=== PATIENT | female | born 2000 | race Caucasian/White ===

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

== ENCOUNTER → 2021-02-28 | Outpatient (CLI) | payer OTHER ==
--- NOTE | 2021-02-28 15:17 | MR ---
EXAMINATION TYPE: MR knee RT wo con DATE OF EXAM: 02/28/2021 COMPARISON: 02/20/2021 HISTORY: Rt knee pain, hx of acl/meniscus surgery TECHNIQUE: Multiplanar, multisequence imaging of the right knee is performed without IV contrast. FINDINGS: MEDIAL MENISCUS: Anterior and posterior horns are intact without tear. LATERAL MENISCUS: Anterior and posterior horns are intact without tear. CRUCIATE LIGAMENTS: The patient is status post ACL repair with graft intact. The PCL is unremarkable . COLLATERAL LIGAMENTS: The medial collateral ligament and lateral collateral ligament complex are inta ct and unremarkable. EXTENSOR MECHANISM: Visualized quadriceps and patellar tendons are intact. EFFUSION: No significant suprapatellar joint effusion. POPLITEAL CYST: No popliteal/grey cyst. CARTILAGE: BONE MARROW SIGNAL: There is bone marrow edema of the posterior aspect of the lateral tibial plateau. Underlying fracture cannot be excluded. OTHER: No additional significant abnormality is appreciated. IMPRESSION: 1. There is bone marrow edema of the posterior aspect of the lateral tibial plateau. Underlying frac ture cannot be excluded. CT could be obtained if clinically warranted. 2. Status post ACL repair with graft grossly intact.
== END | disposition home or self-care (01) ==
LOC: RADMRIMAIN 12:57 → MERGE 13:15
PROVIDERS: ATTEND Orthopaedic Surgery
DX: R60.0 Localized edema (principal)